=== PATIENT | female | born 1975 | race African-American/Black ===

== ENCOUNTER 2024-10-13 11:16 | Emergency (ER) | payer OTHER, SELFPAY ==
[2024-10-13 11:30] VITALS: BP 170/97; PULSE 98; RESP 18; TEMP 36.5; O2SAT 99; BMI 33.6
[2024-10-13 12:14] LABS: Urine Volume 10mL (spun)
[2024-10-13 12:15] LABS: Bacteria Urine Few (2-10); Culture Indicated Urine Specimen Cultured; RBC Urine 1-5/HPF (0-5/HPF); Squamous Epithelial Cell Urine 1-5 /HPF (0-5/HPF); WBC Urine 10-30/HPF (0-5/HPF)
--- NOTE | 2024-10-13 12:18 | DI.CT.S_ITS ---
PROCEDURE: CT ABDOMEN PELVIS W CON INDICATIONS: L flank, LLQ pain TECHNIQUE: After the administration of intravenous contrast, axial sections acquired from the lung bases to the pubic symphysis. Coronal and sagittal reformats were performed. For radiation dose reduction, the following was used: automated exposure control, adjustment of mA and/or kV according to patient size. COMPARISON: None. FINDINGS: Image quality: Diagnostic. Lower Chest: No significant findings. ABDOMEN: Liver: No solid mass. Gallbladder: No radiopaque gallstones or wall thickening. Biliary ducts: No biliary dilation. Pancreas: No ductal dilation. Spleen: Size is within normal limits. Adrenal Glands: No adrenal nodules. Kidneys and Ureters: Delayed left-sided nephrogram. Moderate left-sided hydronephrosis. Mild right-sided hydronephrosis. Bilateral urothelial wall thickening. No abscess. Stomach and Bowel: Normal colonic caliber, without significant wall thickening. Normal appendix. Peritoneum: No abnormal intraperitoneal fluid. No free air. Ventral Wall: No significant ventral hernia. Abdominal Nodes: No retroperitoneal or mesenteric adenopathy by size criteria. Vessels: Aorta and inferior vena cava are normal in size. PELVIS: Pelvic Organs: Unremarkable. Bladder: Urinary bladder wall is diffusely thickened, with wall stratification. Pelvic Nodes: No enlarged lymph nodes. Miscellaneous: No inguinal hernias are seen. Bones: No aggressive osseous abnormality. IMPRESSION: Ascending urinary tract infection, as evidenced by diffusely thickened urinary bladder wall, wall stratification, and urothelial wall thickening to the level of the renal pelvis. There is delayed enhancement of the left kidney, suggestive of early pyelonephritis. No abscess. Dictated by: Michael Andre M.D. on 10/13/2024 at 13:27 Approved by: Michael Andre M.D. on 10/13/2024 at 13:33
[2024-10-13] MEDS: KETOROLAC 30 MG/ML VIAL 15 MG IV (12:50)
[2024-10-13 13:19] LABS: Add Manual Diff / Slide Review NO; Basophils Absolute Auto 0 /uL (0-100); Basophils Percent Auto 0.4 % (0-2); Eosinophils Absolute Auto 100 /uL (0-450); Eosinophils Percent Auto 0.6 % (2-4); Hematocrit 37.6 % (36-46); Hemoglobin 12.7 g/dL (12.0-16.0); Lymphocytes Absolute Auto 1200 /uL (1100-4500); Lymphocytes Percent Auto 13.7 % (25-40); Mean Corpuscular HGB Conc 33.7 % (30-36); Mean Corpuscular Hemoglobin 25.9 PG (26-34); Mean Corpuscular Volume 76.7 fL (80-100); Monocytes Absolute Auto 500 /uL (0-900); Neutrophils Absolute Auto 7200 /uL (1500-7000); Neutrophils Percent Auto 80.3 % (50-75); Platelet Count 312 X10^3/uL (150-400); Red Blood Cell Count 4.91 X10^6/uL (4.0-5.2); Red Cell Distribution Width 17.8 % (11.6-14.8)
[2024-10-13 13:24] LABS: Alanine Aminotransferase 17 IU/L (<35); Albumin 4.4 g/dL (3.5-5.0); Albumin Globulin Ratio 1.3 (1.0-2.8); Alkaline Phosphatase 68 U/L (38-126); Aspartate Aminotransferase 24 IU/L (14-36); BUN Creatinine Ratio 14.4 (6-22); Bilirubin Total 0.6 mg/dL (0.2-1.3); Blood Urea Nitrogen 16 mg/dL (7-17); Calcium 9.8 mg/dL (8.4-10.2); Carbon Dioxide 29 mmol/L (22-32); Chloride 103 mmol/L (98-107); Estimated Glomerular Filt Rate > 60 mL/min (>60); Globulin 3.3 g/dL (1.7-4.1); Glucose 130 mg/dL (70-100); HEMOLYSIS < 15 (0-50); Lactate (Lactic Acid) 1.1 mmol/L (0.7-2.1); Lipase 73 U/L (23-300); Potassium 3.4 mmol/L (3.4-5.1); Sodium 138 mmol/L (137-145); Total Protein 7.7 g/dL (6.3-8.2)
[2024-10-13] MEDS: cefTRIAXone 1,000 MG in SODIUM CHLORIDE 0.9% 100 ML 200 MG IV (13:55)
[2024-10-13] MEDS: SODIUM CHLORIDE 0.9% 1,000 ML 1000 ML IV (14:13)
[2024-10-13 15:05] VITALS: BP 145/87; PULSE 60; RESP 16; O2SAT 100
--- NOTE | 2024-10-13 16:07 | ED.FEMALEGU ---
HPI - Female Genitourinary <Katie Chaney PA-C - Last Filed: 10/13/24 16:17> General Chief complaint: Urogenital-Female Stated complaint: Vaginal Pain Time Seen by Provider: 10/13/24 11:44 History of Present Illness HPI Narrative: 49-year-old female with past medical history hypertension, anemia presents to the ED with 1 week of dysuria with worsening symptoms. Patient states that her symptoms started a week ago, she tried some [id number] medicines. patient endorses dysuria, left-sided flank pain wrapping around to the left lower quadrant. No history of nephrolithiasis. No fever, chills, nausea, vomiting. Patient states that she has not had her normal period in 2 months. Patient does endorse some spotting on and off. Patient does currently have some spotting. No pelvic cramping. No chest pain, shortness of breath, lightheadedness, dizziness, syncope. Related Data Previous Rx's Medication Instructions Recorded cefpodoxime 200 mg tablet 200 mg PO Q12H 10 days #20 tabs 10/13/24 Allergies Allergy/AdvReac Type Severity Reaction Status Date / Time No Known Drug Allergies Allergy Verified 10/13/24 11:30 Review of Systems <Katie Chaney PA-C - Last Filed: 10/13/24 16:17> Constitutional Constitutional: Denies chills, Denies fatigue, Denies fever(s), Denies frequent falls, Denies lethargy and Denies weakness Eyes Eyes: Denies change in vision, Denies eye discharge, Denies irritation and Denies loss of vision ENT Ears, Nose, Mouth, and Throat: Denies change in voice, Denies dizziness, Denies neck pain, Denies sore throat and Denies throat swelling Cardiovascular Cardiovascular: Denies chest pain, Denies irregular heart rhythm, Denies lightheadedness, Denies palpitations, Denies dyspnea, Denies dyspnea on exertion and Denies orthopnea Respiratory Respiratory: Denies cough, Denies dyspnea, Denies dyspnea on exertion and Denies wheezing Gastrointestinal Gastrointestinal: Reports abdominal pain, Denies change in bowel habits, Denies diarrhea, Denies nausea and Denies vomiting Comments: L flank pain Genitourinary Genitourinary: Reports dysuria, Reports light periods and Reports urinary urgency Musculoskeletal Musculoskeletal: Denies neck pain and Denies numbness Integumentary/Breasts Skin/Breast: Denies pruritus, Denies erythema, Denies rash and Denies wounds Neurologic Neurologic: Denies behavioral changes, Denies confusion, Denies dizziness, Denies frequent falls, Denies loss of vision, Denies numbness and Denies weakness Psychiatric Psychiatric: Denies anxiety, Denies behavioral changes, Denies confusion, Denies depression, Denies homicidal ideation and Denies suicidal ideation Endocrine Endocrine: Denies fatigue, Denies flushing and Denies palpitations Hematologic/Lymphatic Hematologic/Lymphatic: Denies easy bruising Allergic/Immunologic Allergic/Immunologic: Denies urticaria, Denies throat swelling and Denies wheezing Patient History <Katie Chaney PA-C - Last Filed: 10/13/24 16:17> alcohol intake frequency: holidays/special occasions only Substance Use Type: does not use Exam <Katie Chaney PA-C - Last Filed: 10/13/24 16:17> Narrative Exam Narrative: Const General:?cooperative, healthy appearing and comfortable [facility] Head:?normal to inspection Ears:?hearing grossly normal bilaterally Nose:?external nose normal Face and sinus:?normal facial exam and sinuses nontender Mouth:?oral mucosae normal Throat:?posterior oropharynx normal Eyes General:?appearance normal, both eyes and all related structures Neck Neck:?normal visual inspection and no lymphadenopathy noted Resp Effort & Inspection:?normal respiratory effort Auscultation:?clear to auscultation bilaterally Cardio Rate:?regular rate Rhythm:?regular rhythm GI Abdomen is soft, nondistended. Abdomen is tender in the lower quadrants. There is left-sided CVA tenderness. Neuro General:?patient alert, patient awake and patient oriented x3 Initial Vital Signs Initial Vital Signs: Vital Signs Temperature 97.7 F 10/13/24 11:30 Pulse Rate 98 H 10/13/24 11:30 Respiratory Rate 18 10/13/24 11:30 Blood Pressure 170/97 H 10/13/24 11:30 Pulse Oximetry 99 10/13/24 11:30 Oxygen Delivery Method Room Air 10/13/24 11:30 <Nallely Bowers DO - Last Filed: 10/13/24 21:09> Initial Vital Signs Initial Vital Signs: Vital Signs Temperature 97.7 F 10/13/24 11:30 Pulse Rate 98 H 10/13/24 11:30 Respiratory Rate 18 10/13/24 11:30 Blood Pressure 170/97 H 10/13/24 11:30 Pulse Oximetry 99 10/13/24 11:30 Oxygen Delivery Method Room Air 10/13/24 11:30 Course <Katie Chaney PA-C - Last Filed: 10/13/24 16:17> Orders Ordered: ED Orders 10/13/24 12:18 CT abdomen pelvis w con Stat 10/13/24 13:00 CBC Auto Diff [Complete Blood Count AUTO DIFF] Stat CMP [Comprehensive Metabolic Panel] Stat Lactate (Lactic Acid) Stat Lipase Stat Discontinued Medications Ceftriaxone Sodium 1,000 mg/ (Sodium Chloride) 100 mls @ 200 mls/hr IV NOW ONE Stop: 10/13/24 13:38 Last Infusion: 10/13/24 14:36 Dose: Infused Documented By: Admin: 10/13/24 13:55 Dose: 200 mls/hr Documented By: RB Sodium Chloride (Normal Saline 0.9%) 1,000 mls @ 1,000 mls/hr IV BOLUS ONE Stop: 10/13/24 14:59 Last Infusion: 10/13/24 15:04 Dose: Infused Documented By: Admin: 10/13/24 14:13 Dose: 1,000 mls/hr Documented By: RB Ketorolac Tromethamine (Ketorolac 30 Mg/Ml Vial) 15 mg IV NOW ONE Stop: 10/13/24 12:20 Last Admin: 10/13/24 12:50 Dose: 15 mg Documented By: RB Ondansetron HCl (Ondansetron 4 Mg/2 Ml Inj) 4 mg IV NOW PRN PRN Reason: Nausea And Vomiting Ondansetron HCl (Ondansetron 4 Mg Odt) 4 mg SL NOW PRN PRN Reason: Nausea And Vomiting Vital Signs Vital signs: Vital Signs - 8 hr 10/13/24 15:05 Pulse Rate 60 Respiratory Rate 16 Blood Pressure 145/87 H Pulse Oximetry 100 Oxygen Delivery Method Room Air <Nallely Bowers DO - Last Filed: 10/13/24 21:09> Orders Ordered: ED Orders 10/13/24 12:18 CT abdomen pelvis w con Stat 10/13/24 13:00 CBC Auto Diff [Complete Blood Count AUTO DIFF] Stat CMP [Comprehensive Metabolic Panel] Stat Lactate (Lactic Acid) Stat Lipase Stat Discontinued Medications Ceftriaxone Sodium 1,000 mg/ (Sodium Chloride) 100 mls @ 200 mls/hr IV NOW ONE Stop: 10/13/24 13:38 Last Infusion: 10/13/24 14:36 Dose: Infused Documented By: Admin: 10/13/24 13:55 Dose: 200 mls/hr Documented By: RB Sodium Chloride (Normal Saline 0.9%) 1,000 mls @ 1,000 mls/hr IV BOLUS ONE Stop: 10/13/24 14:59 Last Infusion: 10/13/24 15:04 Dose: Infused Documented By: Admin: 10/13/24 14:13 Dose: 1,000 mls/hr Documented By: RB Ketorolac Tromethamine (Ketorolac 30 Mg/Ml Vial) 15 mg IV NOW ONE Stop: 10/13/24 12:20 Last Admin: 10/13/24 12:50 Dose: 15 mg Documented By: RB Ondansetron HCl (Ondansetron 4 Mg/2 Ml Inj) 4 mg IV NOW PRN PRN Reason: Nausea And Vomiting Ondansetron HCl (Ondansetron 4 Mg Odt) 4 mg SL NOW PRN PRN Reason: Nausea And Vomiting Vital Signs Vital signs: Vital Signs - 8 hr 10/13/24 15:05 Pulse Rate 60 Respiratory Rate 16 Blood Pressure 145/87 H Pulse Oximetry 100 Oxygen Delivery Method Room Air MDM - Female Genitourinary <Katie Chaney PA-C - Last Filed: 10/13/24 16:17> Lab Data 10/13/24 13:00 10/13/24 13:00 Labs: Lab Results 10/13/24 10/13/24 Range/Units 11:44 13:00 WBC 9.0 (4.5-11.0) X10^3/uL RBC 4.91 (4.0-5.2) X10^6/uL Hgb 12.7 (12.0-16.0) g/dL Hct 37.6 (36-46) % MCV 76.7 L (80-100) fL MCH 25.9 L (26-34) PG MCHC 33.7 (30-36) % RDW 17.8 H (11.6-14.8) % Plt Count 312 (150-400) X10^3/uL Neut % (Auto) 80.3 H (50-75) % Lymph % (Auto) 13.7 L (25-40) % [place] % (Auto) 5.0 (3-14) % Eos % (Auto) 0.6 L (2-4) % Baso % (Auto) 0.4 (0-2) % Neut # (Auto) 7200 H (9310-8726) /uL Lymph # (Auto) 1200 (3155-1747) /uL [place] # (Auto) 500 (0-900) /uL Eos # (Auto) 100 (0-450) /uL Baso # (Auto) 0 (0-100) /uL Sodium 138 (137-145) mmol/L Potassium 3.4 (3.4-5.1) mmol/L Chloride 103 (98-107) mmol/L Carbon Dioxide 29 (22-32) mmol/L BUN 16 (7-17) mg/dL Creatinine 1.11 H (0.52-1.04) mg/dL Estimated GFR > 60 (>60) mL/min BUN/Creatinine Ratio 14.4 (6-22) Glucose 130 H (70-100) mg/dL Lactate 1.1 (0.7-2.1) mmol/L Calcium 9.8 (8.4-10.2) mg/dL Total Bilirubin 0.6 (0.2-1.3) mg/dL AST 24 (14-36) IU/L ALT 17 (<35) IU/L Alkaline Phosphatase 68 (38-126) U/L Total Protein 7.7 (6.3-8.2) g/dL Albumin 4.4 (3.5-5.0) g/dL Globulin 3.3 (1.7-4.1) g/dL Albumin/Globulin Ratio 1.3 (1.0-2.8) Lipase 73 (23-300) U/L Urine RBC 1-5/hpf (0-5/HPF) Urine WBC 10-30/hpf H (0-5/HPF) Ur Squamous Epith Cells 1-5 /hpf (0-5/HPF) Urine Bacteria Few (2-10) H (None) Ur Culture Indicated? Specimen cultured Vol Urine Centrifuged 10ml (spun) Point of Care Testing Test Results Negative Urine Dip Bedside Urine Glucose Negative Bedside Urine Bilirubin - Negative Bedside Urine Ketone - Negative Urine Specific Brandon 1.015 Bedside Urine Occult Blood + Bedside Urine pH 6.0 Bedside Urine Protein + 30 Bedside Urine Urobilinogen - Negative Bedside Urine Nitrite - Negative Bedside Urine Leukocytes ++ 125 Esterase MDM Narrative Medical decision making narrative: 49-year-old female with past medical history hypertension, anemia presents to the ED with 1 week of dysuria with worsening symptoms. Concern for UTI versus nephrolithiasis versus IUP versus ectopic versus diverticulitis versus other intra-abdominal pathology versus other. Will obtain labs, UA, CT abdomen pelvis, urine . Creatinine is slightly elevated at 1.11. GFR remains greater than 60. All other labs within normal limits. UA shows UTI. Urine is negative. CT abdomen pelvis shows a ascending urinary tract infection, as evidenced by diffusely thickened urinary bladder wall, wall stratification and urothelial wall thickening to the level of the renal pelvis. There is delayed enhancement of the left kidney, suggestive of early pyelonephritis. No abscess. Patient was given some ketorolac with good improvement. Patient given 1 g of ceftriaxone IV and a 1L bolus of saline.. Prescribed cefpodoxime p.o. to take at home. ED return precautions were discussed with patient. Patient verbalized understanding. Medical records reviewed: Yes <Nallely Bowers DO - Last Filed: 10/13/24 21:09> Lab Data Labs: Lab Results 10/13/24 10/13/24 Range/Units 11:44 13:00 WBC 9.0 (4.5-11.0) X10^3/uL RBC 4.91 (4.0-5.2) X10^6/uL Hgb 12.7 (12.0-16.0) g/dL Hct 37.6 (36-46) % MCV 76.7 L (80-100) fL MCH 25.9 L (26-34) PG MCHC 33.7 (30-36) % RDW 17.8 H (11.6-14.8) % Plt Count 312 (150-400) X10^3/uL Neut % (Auto) 80.3 H (50-75) % Lymph % (Auto) 13.7 L (25-40) % [place] % (Auto) 5.0 (3-14) % Eos % (Auto) 0.6 L (2-4) % Baso % (Auto) 0.4 (0-2) % Neut # (Auto) 7200 H (8070-4632) /uL Lymph # (Auto) 1200 (1268-6893) /uL [place] # (Auto) 500 (0-900) /uL Eos # (Auto) 100 (0-450) /uL Baso # (Auto) 0 (0-100) /uL Sodium 138 (137-145) mmol/L Potassium 3.4 (3.4-5.1) mmol/L Chloride 103 (98-107) mmol/L Carbon Dioxide 29 (22-32) mmol/L BUN 16 (7-17) mg/dL Creatinine 1.11 H (0.52-1.04) mg/dL Estimated GFR > 60 (>60) mL/min BUN/Creatinine Ratio 14.4 (6-22) Glucose 130 H (70-100) mg/dL Lactate 1.1 (0.7-2.1) mmol/L Calcium 9.8 (8.4-10.2) mg/dL Total Bilirubin 0.6 (0.2-1.3) mg/dL AST 24 (14-36) IU/L ALT 17 (<35) IU/L Alkaline Phosphatase 68 (38-126) U/L Total Protein 7.7 (6.3-8.2) g/dL Albumin 4.4 (3.5-5.0) g/dL Globulin 3.3 (1.7-4.1) g/dL Albumin/Globulin Ratio 1.3 (1.0-2.8) Lipase 73 (23-300) U/L Urine RBC 1-5/hpf (0-5/HPF) Urine WBC 10-30/hpf H (0-5/HPF) Ur Squamous Epith Cells 1-5 /hpf (0-5/HPF) Urine Bacteria Few (2-10) H (None) Ur Culture Indicated? Specimen cultured Vol Urine Centrifuged 10ml (spun) Point of Care Testing Test Results Negative Urine Dip Bedside Urine Glucose Negative Bedside Urine Bilirubin - Negative Bedside Urine Ketone - Negative Urine Specific Brandon 1.015 Bedside Urine Occult Blood + Bedside Urine pH 6.0 Bedside Urine Protein + 30 Bedside Urine Urobilinogen - Negative Bedside Urine Nitrite - Negative Bedside Urine Leukocytes ++ 125 Esterase Discharge Plan Departure Patient Disposition: Home Clinical Impression: Pyelonephritis Instructions: DI for Kidney Infection Activity Restrictions/Additional Instructions: You were evaluated in the ED today for left-sided flank and abdominal pain, pain with urination. your urine tested positive for a urinary tract infection. Your labs did show a small elevation of creatinine, which is a marker of kidney function. It is normal with a kidney infection to have a slightly elevated creatinine. You have been given a 1st dose of antibiotics via IV. You will be able to go home and continue oral antibiotics. continue to stay well hydrated. Please follow-up with your PCP as soon as possible. Return to the ED if you have worsening symptoms. Prescriptions: New cefpodoxime 200 mg tablet 200 mg PO Q12H 10 Days Qty: 20 0RF Rx Instructions: must administer with a meal/food Referrals: ProviderPardeep [Primary Care Provider] - Stand Alone Forms: Patient Portal/API/Survey ED Sign-out <Nallely Bowers DO - Last Filed: 10/13/24 21:09> Cosign ED Attending Ree Attestation: I was available for consultation.
== END 2024-10-13 15:05 | disposition home or self-care (01) ==
PROVIDERS: Emergency Provider Student in an Organized Health Care Education/Training Program
DX: N12 Tubulo-interstitial nephritis, not specified as acute or chronic (principal); R10.32 Left lower quadrant pain
CPT/HCPCS: 36415; 74177; 80053; 81003; 81015; 81025; 83605; 83690; 85025; 87077; 87086; 96365; 96375; 99284; J0696; J1885; Q9967